=== PATIENT | female | born 1945 | race Caucasian/White ===

== ENCOUNTER → 2017-03-03 | Outpatient (CLI) | payer OTHER | LOC: ULTRA 12:29 | DX: R10.84 Generalized abdominal pain (principal) ==

== ENCOUNTER → 2017-03-06 | Outpatient (CLI) | payer OTHER ==
--- NOTE | ~2017-03-06 | P ---
[facility] [place] [address] PROCEDURE REPORT Name: KEVIN MCCLELLAN Joon Room #: [facility]#: [id number] Admission: 03/06/17 Attend Phys: Tacos Quinterso MD Discharge: Date of : 47 Report #: [id number] THIS REPORT FOR: //name// CC: Walter Quinteros DATE OF SERVICE: 03/06/2017 BRIEF HISTORY: The patient is a 71-year-old woman known to me from previous evaluation with recurrent dysphagia in particular for pills with previous esophageal dilation. She also complains of nausea and upper abdominal pain. PREOPERATIVE DIAGNOSES: 1. Nausea. 2. Upper abdominal pain. 3. Early satiety. POSTOPERATIVE DIAGNOSES: 1. Mild grade A esophagitis. 2. Dysphagia. MEDICATIONS: Deep sedation with propofol per anesthesia. SPECIMEN: None. ESTIMATED BLOOD LOSS: None. PROCEDURE: EGD and Brown dilation. FINDINGS: Prior to propofol sedation, procedure of upper endoscopy discussed with the patient as well as potential risks and its complications. She indicates she understands and desires to proceed. DESCRIPTION OF PROCEDURE: With the patient in left lateral decubitus position, the [employer] video endoscope was inserted in the cervical esophagus under direct vision without difficulty. Examination of this organ through its entire length revealed normal esophageal mucosa down the squamocolumnar junction. At the squamocolumnar junction, she was found to have a tiny single erosion right at the GE junction. The remainder of the squamocolumnar junction was normal. Hiatus hernia was not seen. There was no evidence of Rushing mucosa. The scope was advanced in the stomach, which was examined on end view as well as retroflexed views. She has normal appearing gastric mucosa. It is noted that biopsies a year ago in February were negative for H. pylori. Pylorus was normal. Duodenal bulb was normal. Duodenal sweep was inspected and noted to be within normal limits. At that point, the scope was slowly withdrawn and careful [facility] [address] [place] [address] PROCEDURE REPORT Name: KEVIN MCCLELLAN Room #: [facility].#: [id number] Admission: 03/06/17 Attend Phys: Tacos Quinteros MD Discharge: Date of : 47 Report #: [id number] circumferential views confirmed the above findings. The patient tolerated the procedure well. Subsequently, she was dilated with passage of a 50-Romanian Brown dilator. There was no resistance. CONDITION OF THE PATIENT UPON DISCHARGE: Following procedure, the patient drowsy, aroused, conversant and will be discharged home when fully ambulatory. INSTRUCTIONS TO THE PATIENT AND FAMILY AT THE TIME OF DISCHARGE: The patient has complaints of both upper abdominal pain and nausea. She has had similar complaints in the past. Gastric emptying study a little more than year ago was normal. She does have esophagitis. She had recent ultrasound of the abdomen, which was nondiagnostic. We will start her on omeprazole 40 mg daily. Also, suggest Zofran 4 mg every 8 hours as needed for nausea. If she does not have resolution of symptoms, she should return for followup in the office. By: [id number] Tacos Quinteros MD /nt
== END | disposition home or self-care (01) ==
LOC: GI 07:05
DX: K20.9 Esophagitis, unspecified (principal); R13.10 Dysphagia, unspecified; K22.10 Ulcer of esophagus without bleeding
CPT/HCPCS: 62110; 62900